=== PATIENT | male | born 1960 | race Two or more races ===

== ENCOUNTER 2016-06-08 13:20 | Day surgery (SDC) | payer BC ==
[~2016-06-08] VITALS: Ht 165.1 cm; Wt 69.9 kg
[~2016-06-08 13:20] MED LIST: BP MED; [UNRECOGNIZED DRUG - REMARK]
[2016-06-08 13:55] VITALS: Ht 165.1 cm; Wt 69.9 kg
[2016-06-08] MEDS ORDERED: VIT. D (13:57)
[2016-06-08] MEDS ORDERED: CHOLESTEROL MED. (13:57)
[2016-06-08] MEDS ORDERED: LISI10TA2 PO (13:57)
[2016-06-08 14:08] VITALS: BP 145/81; PULSE 99; RESP 15
[2016-06-08] MEDS ORDERED: FENTAnyl 50 MCG/ML VIAL ONE (15:02)
[2016-06-08] MEDS ORDERED: MIDAZOLAM 1 MG/ML 2 ML INJ ONE ×2 (15:02)
[2016-06-08 15:10] VITALS: BP 119/78; PULSE 97; RESP 14
--- NOTE | 2016-06-08 23:07 | GILP ---
DATE OF PROCEDURE: NAME OF PROCEDURES: Colonoscopy and biopsy. SURGEON: Camacho Bernard MD PREOPERATIVE DIAGNOSES: 1. Rectal bleeding. 2. History of colitis. POSTOPERATIVE DIAGNOSES: 1. Colonoscopy all the way to the cecum. 2. Mild colitis in the sigmoid colon and biopsies were taken for histopathology. 3. Normal terminal ileum. 4. Internal hemorrhoids. INDICATION FOR THE PROCEDURE: Mr. MD Gilmore is a 55-year-old male patient who was complaining of rec corrine bleeding. He also had history of colitis. The patient was scheduled for colonoscopy for [facility] evaluation. The procedure and possible complications are well explained to the patient. The patient understood and consented to the procedure. DESCRIPTION OF PROCEDURE: Under the influence of fentanyl and Versed, the colonoscope was carefully introduced in the rectum and, under direct vision, it was advanced all the way to the cecum. FINDINGS: The patient had nonspecific colitis in the sigmoid colon and biopsies were taken for hist opathology. The patient had internal hemorrhoids. The scope was advanced also into the terminal ileum and it was normal. The patient tolerated the procedure very well and there was no complication from the procedure. At the end of the procedure, he was awake with stable vital signs and he was discharged home to the car e of his family. IMPRESSION: 1. Colonoscopy all the way to the cecum and into the terminal ileum. 2. Normal terminal ileum. 3. Nonspecific colitis in the sigmoid colon and biopsies were taken for histopathology. 4. Internal hemorrhoids. PLAN: 1. Await histopathology report. 2. Colazal 2 tablets p.o. b.i.d. 3. Anusol-HC 2.5% cream at bedtime. Dictated By: CAMACHO CABRAL/PERRI Conf#: [id number] DID#: [id number] CC: CAMACHO BERNARD MD;*EndCC*
== END 2016-06-08 15:37 | disposition home or self-care (01) ==
LOC: GIL 13:20
PROVIDERS: ATTEND Internal Medicine Gastroenterology
DX: K64.8 Other hemorrhoids (principal); K52.9 Noninfective gastroenteritis and colitis, unspecified; I10 Essential (primary) hypertension
CPT/HCPCS: 45380; 88305; J2250; J3010; Z7610